=== PATIENT | female | born 1945 | race Caucasian/White ===

== ENCOUNTER → 2019-06-12 08:36 | Outpatient (REF) | payer MEDICARE, SELFPAY | LOC: ANHLAB 08:36 | PROVIDERS: PCP Internal Medicine; Visit Provider Nurse Practitioner Family | DX: D49.2 Neoplasm of unspecified behavior of bone, soft tissue, and skin (principal) | CPT/HCPCS: 88305 ==

== ENCOUNTER → 2019-07-02 09:53 | Outpatient (REF) | payer MEDICARE, SELFPAY | LOC: ANHLAB 09:53 | PROVIDERS: PCP Internal Medicine; Visit Provider Nurse Practitioner Family | DX: C44.321 Squamous cell carcinoma of skin of nose (principal) | CPT/HCPCS: 88305; 88331 ==

== ENCOUNTER 2020-06-30 11:46 | Outpatient (CLI) | payer MEDICARE, SELFPAY | END 2020-06-30 11:47 | disposition home or self-care (01) | LOC: ANHCOVIDVC 11:46 | PROVIDERS: PCP Internal Medicine | DX: Z23 Encounter for immunization (principal) | CPT/HCPCS: 0001A; 91300 ==

== ENCOUNTER 2020-07-21 11:45 | Outpatient (CLI) | payer MEDICARE, SELFPAY | END 2020-07-21 11:46 | disposition home or self-care (01) | LOC: ANHCOVIDVC 11:45 | PROVIDERS: PCP Internal Medicine | DX: Z23 Encounter for immunization (principal) | CPT/HCPCS: 0002A; 91300 ==

== ENCOUNTER 2023-09-05 04:22 | Observation (INO) | payer MEDICARE, SELFPAY ==
[2023-09-05] VITALS (24 sets, daily range): BP systolic 147–169; BP diastolic 60–89; PULSE 68–166; RESP 16–24; TEMP 36.5–36.8; O2SAT 93–100; BMI 25.3
--- NOTE | 2023-09-05 | ECHO_ITS ---
Patient Info Name: Miriam Lima Age: 78 years : 1945 Gender: Female Ht: 61 in Wt: 134 lbs BSA: 1.63 m2 HR: 85 bpm BP: 155 / 68 mmHg Heart Rhythm: Sinus Rhythm Technical Quality: Fair Exam Date: 09/05/2023 4:06 PM Exam Location: Echo Lab Patient Status: Outpatient Admit Date: 09/05/2023 Staff Ordering Physician: Jose Rafael Long MD Chemist Enzymes: Lawrence James RDCS Attending Provider: Donnell Lewis MD Referring Physician: Ethan DEL REAL; Exam Type: CA echo doppler w bubble study Study Info Indications - CVA Complete two-dimensional, color flow and Doppler transthoracic echocardiogram is performed with agitated saline. Contrast/Agitated Saline Contrast/Ag. Saline: Agitated Saline Amount: 14.00 ml IV Access Condition: patent with no signs of infiltration Summary 1. Left ventricular chamber dimension is normal. 2. Left ventricular systolic function is normal, estimated at 60-65%. 3. The left ventricular diastolic function is grade I diastolic dysfunction. 4. Right ventricular systolic function is normal. 5. Intact interatrial septum visualized by color flow and agitated saline imaging. Negative bubble study. 6. No significant valvular disease. Left Ventricle Left ventricular chamber dimension is normal. Left ventricular systolic function is normal, estimated at 60-65%. There is no increased left ventricular wall thickness. The left ventricular diastolic function is grade I diastolic dysfunction. Right Ventricle Right ventricular chamber dimension is normal. Right ventricular systolic function is normal. Left Atria Left atrial chamber dimension is normal. Right Atria Right atrial chamber dimension is normal. Atrial Septum Intact interatrial septum visualized by color flow and agitated saline imaging. Negative bubble study. Aortic Valve The aortic valve is trileaflet. There is mild aortic valve sclerosis. There is no aortic valve stenosis. There is trace aortic valve regurgitation. Pulmonic Valve The pulmonic valve is not well visualized. There is trace pulmonic regurgitation. Mitral Valve There is trace mitral valve regurgitation. Tricuspid Valve There is trace tricuspid valve regurgitation. Pericardium/Pleural The pericardium appears epicardial fat pad. There is no pericardial effusion. Inferior Vena Cava Normal inferior vena cava with >50% collapse upon inspiration consistent with normal right atrial pressure, 3 mmHg. Aorta The aortic root size at the sinus of Valsalva is normal. Left Ventricular Outflow Tract Name Value Normal LVOT 2D LVOT Diameter 2.0 cm LVOT Doppler LVOT Peak Gradient 4 mmHg LVOT Mean Gradient 2 mmHg LVOT VTI 19 cm LVOT VTI/AV VTI Ratio 0.9 LVOT Stroke Volume 56 ml LVOT CO 4.0 l/min LVOT CI 2.4 l/min/m2 Pulmonic Valve Name Value Normal
--- NOTE | ~2023-09-05 | CT_ITS ---
CT ANGIOGRAM NECK AND HEAD History: Left-sided numbness. Technique: Axial noncontrast imaging of the brain was performed. Serial spiral axial images through t he head and neck were then obtained during arterial phase IV injection of 100 cc of Omnipaque 350. 3- D postprocessing and MIP images were then reconstructed on the remote workstation. Dose reduction leydi hnique was used on this scan by utilizing automated exposure control and iterative reconstruction leydi hnique. The dose-length product (DLP) was 1503.40 mGy-cm. CTA neck findings: Bilateral vertebral arteries are patent. Bilateral common carotid, internal carot id, and external carotid arteries are patent. No large vessel occlusion or stenosis. No aneurysm. The proximal right internal carotid artery demonstrates 0% stenosis relative to the normal distal artery lumen diameter. The proximal left internal carotid artery demonstrates 0% stenosis relative to the n ormal distal artery lumen diameter. CTA head findings: Distal vertebral arteries, basilar artery, and posterior cerebral arteries are pat ent. Distal internal carotid arteries, middle cerebral arteries, and anterior cerebral arteries are p atent. No large vessel occlusion or stenosis. No aneurysm evident. Axial noncontrast imaging of the brain is unremarkable. No acute infarct, internal hemorrhage or mass lesion seen. No mass effect or midline shift. Dykes-white differentiation preserved. Ventricles and s ubarachnoid spaces are unremarkable. There are retention cysts or polyps in the maxillary sinuses. Re maining paranasal sinuses and mastoid air cells are essentially clear. Impression: No significant abnormality seen. Reviewed, dictated and finalized at location . Impression: No significant abnormality seen.
--- NOTE | ~2023-09-05 | MR_ITS ---
EXAMINATION: MR brain/brain stem wo/w con DATE: 09/05/2023 12:31 INDICATION: Left hemiparesis. TECHNIQUE: Magnetic resonance imaging (MRI) of the brain and brainstem was performed without and with 12 mL MultiHance intravenous contrast. COMPARISON: CT head 09/05/2023 FINDINGS: There are scattered areas of nonspecific increased T2-weighted signal intensity in the cere bral white matter, which is within normal limits for the patient's age. There is no intracranial hemo rrhage, acute infarction, or abnormal intracranial mass lesion. The ventricles are normal in size. Th e orbits are normal. There is mucosal thickening in the paranasal sinuses. The mastoid air cells are normal. IMPRESSION: 1. Normal aging brain. Reviewed, dictated and finalized at location A. IMPRESSION: 1. Normal aging brain.
--- NOTE | ~2023-09-05 | XR_ITS ---
Portable chest x-ray Comparison: None Clinical History: Left-sided numbness Findings: Small calcified granulomas are present. No acute pulmonary abnormality seen. Cardiomedias tinal silhouette is unremarkable. Bones and soft tissues are unremarkable. Impression: No acute abnormalities. Reviewed, dictated and finalized at [facility]. Impression: No acute abnormalities.
--- NOTE | 2023-09-05 05:14 | ECG_ITS ---
SEE SCANNED COPY FOR CONFIRMED REPORT MTDD
--- NOTE | 2023-09-05 05:36 | ED.GENADULT ---
HPI - General Adult General Chief complaint: Neuro Symptoms/Deficit <Zelalem Diaz MD - Last Filed: 09/05/23 07:20> Stated complaint: left arm and left leg numbness <Zelalem Diaz MD - Last Filed: 09/05/23 07:20> Time Seen by Provider: 09/05/23 04:50 <Zelalem Diaz MD - Last Filed: 09/05/23 07:20> History of Present Illness HPI narrative: This is a 78-year-old female presenting with left-sided numbness. last known normal was early Sunday morning 2 days ago. Patient has been experiencing numbness and tingling on the left side of her body. It has affected the left side of face, left upper extremity and left lower extremity. No other neurologic deficits or weakness. <Zelalem Diaz MD - Last Filed: 09/05/23 07:20> Related Data Home medications: Home Medications Medication Instructions Recorded Confirmed aspirin 81 mg tablet,delayed 81 mg PO QHS 05/13/19 09/05/23 release fexofenadine 180 mg tablet 180 mg PO DAILY 05/14/19 09/05/23 (Margie Allergy) latanoprostene bunod 0.024 % eye 1 drp EACH EYE DAILY 03/07/22 09/05/23 drops (Vyzulta) <Zelalem Diaz MD - Last Filed: 09/05/23 07:20> Allergies/adverse reactions: Allergies Allergy/AdvReac Type Severity Reaction Status Date / Time naproxen Allergy Severe passing out Verified 07/12/23 08:03 codeine AdvReac Mild nausea Verified 09/05/23 07:46 <Zelalem Diaz MD - Last Filed: 09/05/23 07:20> [facility] Past Medical History Medical History: Medical History Allergic rhinitis Glaucoma Irritable bowel syndrome with diarrhea Osteoarthritis Pure hypercholesterolemia Skin neoplasm <Zelalem Diaz MD - Last Filed: 09/05/23 07:20> Surgical History Surgical History: Surgical History History of breast surgery <Zelalem Diaz MD - Last Filed: 09/05/23 07:20> Family History Family History: Family History Sibling Family history of malignant neoplasm of breast in first degree relative, Onset Age: 62 Patient's sister is Cerebrovascular accident Mother Patient's mother is Father Patient's father is <Zelalem Diaz MD - Last Filed: 09/05/23 07:20> Social History Social History: Social History Smoking status: Never smoker Second hand tobacco smoke exposure: No Alcohol intake: never Substance use: never Do You Feel Safe in your Home?: Yes Lack of Transportation: No Lack of Food: Never True Current Housing: I Have Housing Concerned About Future Housing: No Difficulty Paying Gas/Electric Bills: No Difficulty Paying for Meds: No Currently Unemployed: No Education: High School Diploma/GED Difficulty w/ Childcare or Family Care: No Spiritual care concerns: No <Zelalem Diaz MD - Last Filed: 09/05/23 07:20> Exam Narrative: APPEARANCE: No apparent distress. Head: atraumatic. EYES: EOMI, NOSE: Atraumatic NECK: Trachea midline RESPIRATORY: No increased rate of breathing CTAB CARDIOVASCULAR: RRR, ABDOMINAL: Non-distended MUSCULOSKELETAl: No obvious deformities NEURO: Alert. Cranial nerves 2-12 grossly intact. motor function, cerebellar function intact for 4 extremities. sensation to light touch reduced on the left side of the body, Gait exam was normal. SKIN:: Warm, dry. Normal color PSYCHIATRIC: Normal affect NIH Stroke Scale/Score (NIHSS) from [email or web address] on 09/05/2023 All calculations should be rechecked by clinician prior to use RESULT SUMMARY: 1 points NIH Stroke Scale INPUTS: 1A: Level of consciousness ?> 0 = Alert; keenly responsive 1B: Ask month and age ?> 0 = Both questions right 1C: 'Blink eyes' & 'squeeze hands' ?> 0 = Performs both tasks 2: Horizontal extr
[2023-09-05 06:19] LABS: Basophils Absolute Auto 0.1 K/mm3 (0.0-0.1); Basophils Percent Auto 0.9 % (0.2-1.2); Eosinophils Absolute Auto 0.2 K/mm3 (0-0.3); Hematocrit 40.7 % (37.0-47.0); Hemoglobin 12.8 g/dL (12.0-15.0); Immature Granulocyte Absolute 0.01 K/mm3 (0.00-0.031); Immature Granulocyte Percent A 0.2 % (0-0.5); Lymphocytes Absolute Auto 2.58 K/mm3 (0.9-3.2); Lymphocytes Percent Auto 45.8 % (18.3-44.2); Mean Corpuscular HGB Conc 31.4 g/dl (32-36); Mean Corpuscular Hemoglobin 28.6 pg (26-34); Mean Corpuscular Volume 90.8 fl (80-100); Mean Platelet Volume 9.6 fl (7.4-10.4); Monocytes Absolute Auto 0.5 K/mm3 (0.1-0.6); Monocytes Percent Auto 8.5 % (2.6-8.5); Neutrophils Absolute Auto 2.3 K/mm3 (1.3-6.7); Neutrophils Percent Auto 41.6 % (45.5-73.1); Platelet Count Result 276 k/mm3 (150-375); Red Blood Count 4.48 M/mm3 (4.2-5.4); Red Cell Distribution Width 13.4 % (11.5-14.5); White Blood Count 5.6 K/mm3 (4.5-10.0)
[2023-09-05 06:29] LABS: Alanine Aminotransferase 20 U/L (6-35); Albumin Level 4.3 g/dL (3.5-5.1); Alkaline Phosphatase 71 U/L (38-126); Anion Gap 6 mmol/L (4-12); Aspartate Amino Transferase 22 U/L (14-36); Bilirubin,Total 0.4 mg/dL (0.2-1.3); Blood Urea Nitrogen 20 mg/dL (7-17); Calcium 9.3 mg/dL (8.4-10.2); Carbon Dioxide 26 mmol/L (22-30); Chloride 109 mmol/L (98-107); Estimated CRCL calculation 37 ml/min; Estimated Glomerular Filt Rate > 60; Glucose 95 mg/dL (65-110); Potassium 3.7 mmol/L (3.4-5.0); Sodium 141 mmol/L (137-145)
[2023-09-05 06:30] LABS: Partial Thromboplastin Time 25.5 Seconds (22.3-36.8)
[2023-09-05 06:41] LABS: Troponin I < 0.012 ng/mL (0.000-0.034)
[2023-09-05] MEDS: ASPIRIN 81 MG CHEWABLE TABLET 324 MG PO (07:58)
--- NOTE | 2023-09-05 11:11 | ADMGEN ---
This patient, Miriam Lima, was admitted to Medical Room 255-. Patient/family oriented to hospital policies and general routines including ID bracelet, bed and alarms, visiting hours, pain management, procedures, bathroom and other care routines, personal items, smoking policy, room service/diet, and visiting hours. Information on how to activate the Rapid Response Team has been discussed. Patient/Family are encouraged to report perceived risks to care and to ask questions if they do not understand what they are told or what they should do.
--- NOTE | 2023-09-05 13:14 | PM.IMHP ---
H&P: HPI History of Present Illness Date/Time: 09/05/23 13:14 Chief Complaint: Left Sided Numbness Narrative: 78 y/o F presents here with left sided numbness with PMH of skin neoplasm (nose, s/p excision), asthma, IBS-D, and glaucoma. Patient presented here from home with complaints of left leg numbness and left arm tingling that started on 09/02. First noted around 830-9 am shortly after she got out of bed. LKN on 09/01 at 11 pm. Sensation changes noted by patient to the left leg, left arm, and left face. Initially more so in LUE, then noted it in her foot, and then it effected her LLE from the knee down. Facial numbness is primarily to her left cheek. Numbness has been intermittent. Extremity weakness, dysarthria, trouble swallowing, vision changes, difficulty with speech, headaches, gait changes, or difficulty with dexterity in her upper extremity. Currently lives at home alone, daughter will occasionally come to help but patient primarily lives independently. Reports increased stress for the last week, patient had to go to a friend's on Sunday. Does report numbness to the left cheek felt similar to her early presentation of shingles and her first shingles episode was also precipitated by a grief/ of a loved one, however there is no rash or erythema to area. Initial VS at presentation: 97.8? F, HR 90, RR 22, 150/89, and 100% on RA. ED workup showed: No leukocytosis, no anemia, no significant electrolyte derangements, creatinine 0.8 and GFR >60, initial troponin negative. CXR showed no acute abnormalities. Head and neck CTA showed no significant abnormalities. Review of Systems Review of Systems: All systems reviewed & are unremarkable except as noted in HPI and below PMFSH Past Medical History Medical History (Updated 09/05/23 @ 23:58 by Maria Del Carmen Nielson APRN) Allergic rhinitis Asthma Glaucoma Irritable bowel syndrome with diarrhea Osteoarthritis primarily effecting the cervical spine Skin neoplasm Surgical History Surgical History (Updated 09/05/23 @ 23:51 by Maria Del Carmen Nielson APRN) History of breast surgery cyst removal, 2003 Family History Family History Sibling Family history of malignant neoplasm of breast in first degree relative, Onset Age: 62 Patient's sister is Cerebrovascular accident Mother Patient's mother is Father Patient's father is Social History Social History Smoking status: Never smoker Second hand tobacco smoke exposure: No Alcohol intake: never Substance use: never Do You Feel Safe in your Home?: Yes Lack of Transportation: No Lack of Food: Never True Current Housing: I Have Housing Concerned About Future Housing: No Difficulty Paying Gas/Electric Bills: No Difficulty Paying for Meds: No Currently Unemployed: No Education: High School Diploma/GED Difficulty w/ Childcare or Family Care: No Spiritual care concerns: No Meds Home Medications and Allergies Home Medications Medication Instructions Recorded Confirmed Type aspirin 81 mg tablet,delayed 81 mg PO QHS 05/13/19 09/05/23 History release fexofenadine 180 mg tablet 180 mg PO DAILY 05/14/19 09/05/23 History (Margie Allergy) fluticasone propionate 50 2 spray intranasal DAILY PRN nasal 03/07/22 09/05/23 Rx mcg/actuation nasal congestion #15.8 mL spray,suspension latanoprostene bunod 0.024 % eye 1 drp EACH EYE DAILY 03/07/22 09/05/23 History drops (Vyzulta) albuterol sulfate 90 mcg/actuation 2 puff inhalation .4-6 HOURS PRN 08/11/22 09/05/23 Rx aerosol inhaler (ProAir HFA) shortness of breath or wheezing #18 grams montelukast 10 mg tablet 10 mg PO DAILY #90 tabs 03/19/23 09/05/23 Rx loratadine-pseudoephedrine ER 10 1 tablet PO DAILY PRN nasal 05/08/23 09/05/23 Rx mg-240 mg tablet,extended congest
[2023-09-05] MEDS: LATANOPROST 0.005% OP SOLN 2.5 ML BTL 1 DROP EACH EYE (20:15)
[2023-09-05] MEDS: ASPIRIN 81 MG CHEWABLE TABLET PO (20:15)
[2023-09-05] MEDS: MONTELUKAST SODIUM 10 MG TABLET PO (20:20)
[2023-09-05] MEDS: FLUTICASONE PROP 44 MCG (*SP) 10.6 GM 2 PUFF INHALATION (20:31)
[2023-09-06] VITALS (8 sets, daily range): BP systolic 136–143; BP diastolic 59–70; PULSE 60–93; RESP 16–18; TEMP 35.8–36.4; O2SAT 96–97
[2023-09-06] MEDS: MELATONIN 3 MG TABLET PO (00:31)
[2023-09-06 05:32] LABS: Basophils Absolute Auto 0.1 K/mm3 (0.0-0.1); Basophils Percent Auto 0.9 % (0.2-1.2); Eosinophils Absolute Auto 0.1 K/mm3 (0-0.3); Eosinophils Percent Auto 2.3 % (0-4.4); Hematocrit 40.7 % (37.0-47.0); Hemoglobin 12.6 g/dL (12.0-15.0); Immature Granulocyte Absolute 0.01 K/mm3 (0.00-0.031); Immature Granulocyte Percent A 0.2 % (0-0.5); Lymphocytes Absolute Auto 2.06 K/mm3 (0.9-3.2); Lymphocytes Percent Auto 36.9 % (18.3-44.2); Mean Corpuscular Hemoglobin 28.2 pg (26-34); Mean Corpuscular Volume 91.1 fl (80-100); Mean Platelet Volume 9.1 fl (7.4-10.4); Monocytes Absolute Auto 0.5 K/mm3 (0.1-0.6); Monocytes Percent Auto 9.5 % (2.6-8.5); Neutrophils Absolute Auto 2.8 K/mm3 (1.3-6.7); Neutrophils Percent Auto 50.2 % (45.5-73.1); Platelet Count Result 270 k/mm3 (150-375); Red Blood Count 4.47 M/mm3 (4.2-5.4); Red Cell Distribution Width 13.2 % (11.5-14.5); White Blood Count 5.6 K/mm3 (4.5-10.0)
[2023-09-06 05:42] LABS: Alanine Aminotransferase 20 U/L (6-35); Albumin Level 4.2 g/dL (3.5-5.1); Alkaline Phosphatase 65 U/L (38-126); Anion Gap 5 mmol/L (4-12); Aspartate Amino Transferase 24 U/L (14-36); Bilirubin,Total 0.6 mg/dL (0.2-1.3); Blood Urea Nitrogen 15 mg/dL (7-17); Calcium 9.6 mg/dL (8.4-10.2); Carbon Dioxide 29 mmol/L (22-30); Chloride 108 mmol/L (98-107); Cholesterol 235 mg/dL (0-200); Estimated CRCL calculation 37 ml/min; Estimated Glomerular Filt Rate > 60; Glucose 94 mg/dL (65-110); HDL Direct 71 mg/dL; Potassium 4.2 mmol/L (3.4-5.0); Sodium 142 mmol/L (137-145); Triglycerides 88 mg/dL (<150)
[2023-09-06 05:53] LABS: LDL Cholesterol Direct 134 mg/dL
[2023-09-06 06:09] LABS: Hemoglobin A1C 5.2 % (<5.7)
[2023-09-06] MEDS: FLUTICASONE PROP 44 MCG (*SP) 10.6 GM 2 PUFF INHALATION (08:03)
--- NOTE | 2023-09-06 08:22 | PM.IMPN ---
Progress Note: A&P Assessment and Plan (1) Left sided numbness: Code(s): R20.0 - Anesthesia of skin Status: Acute Assessment and Plan: New deficits of left-sided numbness (leg, arm, face) starting on 09/02 and discovered around 830-9 am on . No stroke on CT or MRI. - admission for observation and telemetry - not candidate for thrombolytics due to timeframe - not candidate for thrombectomy due to occlusion time frame - CTA: No significant abnormality seen. - CXR: No acute abnormalities. - brain MRI w/wo: 1. Normal aging brain. - neurology consulted - Phuong LYONS- not seen yet - echo w/Bubble ordered - neuro checks Q4 - heart healthy diet - monitor daily labs, lipid panel, A1C - defer starting Atorvastatin 40 mg PO or Plavix 75 mg PO to neuro, no CVA seen on MRI - continue ASA 81 mg Plan Presented here with intermittent left sided numbness (leg, arm, face). No CVA on MRI or CTA. Echo ordered. Neuro consulted. Diet: heart healthy GI Prophylaxis: not currently indicated DVT Prophylaxis: SCDs Lines: peripheral Code Status: full code Time Spent With Patient Time with patient: 15 - 25 minutes Subjective Date/time seen: 09/06/23 08:22 Interval history: 78 y/o F presents here with left sided numbness with PMH of skin neoplasm (nose, s/p excision), asthma, IBS-D, and glaucoma. Patient presented here from home with complaints of left leg numbness and left arm tingling that started on 09/02. First noted around 830-9 am shortly after she got out of bed. LKN on 09/01 at 11 pm. Sensation changes noted by patient to the left leg, left arm, and left face. Initially more so in LUE, then noted it in her foot, and then it effected her LLE from the knee down. Facial numbness is primarily to her left cheek. Numbness has been intermittent. Extremity weakness, dysarthria, trouble swallowing, vision changes, difficulty with speech, headaches, gait changes, or difficulty with dexterity in her upper extremity.? Currently lives at home alone, daughter will occasionally come to help but patient primarily lives independently. Reports increased stress for the last week, patient had to go to a friend's on Sunday. Does report numbness to the left cheek felt similar to her early presentation of shingles and her first shingles episode was also precipitated by a grief/ of a loved one, however there is no rash or erythema to area. Initial VS at presentation:? 97.8? F, HR 90, RR 22, 150/89, and 100% on RA. ED workup showed:? No leukocytosis, no anemia, no significant electrolyte derangements, creatinine 0.8 and GFR >60, initial troponin negative.? CXR showed no acute abnormalities.? Head and neck CTA showed no significant abnormalities. Neuro was consulted , brain MRI- WNL echo 09/05- pt is seen and examined. She is somewhat anxious but pleasant and cooperative. no pain or discomfort Review of Systems Review of Systems: All systems reviewed & are unremarkable except as noted in HPI and below Exam Const: General: comfortable and no acute distress Other: , female, nontoxic appearance HENMT: Face/Nose/Sinus: Normal nares present Mouth: Yes moist mucous membranes Eyes: General: appearance normal, both eyes and all related structures Sclera: sclerae normal Pupils: Equal, round and reactive pupils present EOM: EOMs intact bilaterally Resp: Effort & Inspection: normal respiratory effort Auscultation: clear to auscultation bilaterally Cardio: Rate: regular rate Rhythm: regular rhythm Other: S1-S2 present without murmur, rub, ectopy GI: Other: Soft, nondistended, nontender Skin: General skin exam: normal color and no rashes or lesions noted Wounds: no wounds Neuro: Cranial nerves: Yes Equal, round and reactive pupils present Speech: normal speech Motor exam (neuro): 5/5 motor strength present throughout Sensory Exam: normal sensation Other: NIHSS 0. A/Ox4 Extrem: General: norm
[2023-09-06] MEDS: LORATADINE 10 MG TABLET PO (08:24)
--- NOTE | 2023-09-06 15:37 | WPDNEURCNPN ---
Assessment and Plan Assessment and plan (1) Cerebrovascular disease: Code(s): I67.9 - Cerebrovascular disease, unspecified Status: Acute Assessment and Plan: Since the patient has symptoms of numbness in the left face left upper and lower limb in her age and state of live cerebrovascular disease with rest he still appeared to be most likely explanation although MRI of the brain and CT angiogram did not show any significant abnormalities. A small please in the thalamus can easily be missed and has out suggest to treat with atorvastatin 40 mg a day and antiplatelets for now. If she has any further spells we can re-evaluate her again. She is under cardiac telemetry monitoring. This has not shown any abnormalities yet. Echocardiogram was performed which did not show any significant abnormalities. Plan As discussed above atorvastatin and aspirin are recommended. If the symptoms continue up worse have advised her to come back to emergency room. I can also see her in my office if she would like. At this time however she should follow with her family physician. Thank you very much for allowing me to participate in the care of this patient. Consult date: 09/06/23 HPI: Miriam Lima is a 78 year old female with history of onset of numbness in the left upper and lower limb as well as left face. The symptoms are more less resolved although she still continues to have some abnormal feeling on the left side of the face. A CT scan of the brain and CT angiogram of the head and neck were performed on admission which did not show any significant abnormality MRI of the brain was normal the LDL is 134. Patient lives by herself. Daughter lives nearby and is supportive. No history of previous stroke or any lapse in her awareness. No chest pain or palpitation or shortness of breath. She denies any loss of speech difficulty with thinking or memory. Symptoms started 2 days ago. No history of fall or injury or any illness. Review of Systems Constitutional: Constitutional: Denies chills, Denies fever(s) and Denies weight loss Eyes: Eyes: Denies diplopia and Denies loss of vision ENT: Denies dizziness, Denies hearing loss and Denies tinnitus Cardiovascular: Cardiovascular: Denies chest pain, Denies syncope and Denies dyspnea Respiratory: Respiratory: Denies cough, Denies dyspnea and Denies wheezing Gastrointestinal: Gastrointestinal: Denies abdominal pain, Denies change in bowel habits and Denies vomiting Genitourinary: Genitourinary: Denies urinary incontinence Musculoskeletal: Musculoskeletal: Denies arthralgias and Denies joint swelling Integumentary/Breasts: Skin/Breast: Denies new lesions and Denies rash Neurologic: Reports as per HPI, Denies dizziness, Denies syncope and Denies loss of vision Psychiatric: Psychiatric: Denies anxiety and Denies depression Endocrine: Endocrine: Denies cold intolerance and Denies heat intolerance Hematologic/Lymphatic: Hematologic/Lymphatic: Denies easy bleeding and Denies easy bruising Allergic/Immunologic: Allergic/Immunologic: Denies no additional allergic/immunologic complaints and Denies wheezing PMFSH Past Medical History Medical History (Updated 09/06/23 @ 15:39 by Travis Galeana MD) Allergic rhinitis Asthma Cerebrovascular disease Glaucoma Irritable bowel syndrome with diarrhea Osteoarthritis primarily effecting the cervical spine Skin neoplasm Surgical History Surgical History (Updated 09/05/23 @ 23:51 by Maria Del Carmen Nielson APRN) History of breast surgery cyst removal, 2003 Family History Family History Sibling Family history of malignant neoplasm of breast in first degree relative, Onset Age: 62 Patient's sister is Cerebrovascular accident Mother Patient's mother is Father Patient's father is Social History Social History (Reviewed
--- NOTE | 2023-09-06 16:24 | PM.DS ---
DS: Admitting Diagnosis Discharge Date 09/06/23 Admitting Diagnosis lt sided weakness DS: Discharge Diagnosis Discharge Diagnosis (1) Left sided numbness: Code(s): R20.0 - Anesthesia of skin Status: Acute Assessment and Plan: New deficits of left-sided numbness (leg, arm, face) starting on 09/02 and discovered around 830-9 am on . No stroke on CT or MRI. - admission for observation and telemetry - not candidate for thrombolytics due to timeframe - not candidate for thrombectomy due to occlusion time frame - CTA: No significant abnormality seen. - CXR: No acute abnormalities. - brain MRI w/wo: 1. Normal aging brain. - neurology consulted - Phuong LYONS- not seen yet - echo w/Bubble ordered - neuro checks Q4 - heart healthy diet - monitor daily labs, lipid panel, A1C - defer starting Atorvastatin 40 mg PO or Plavix 75 mg PO to neuro, no CVA seen on MRI - continue ASA 81 mg Plan Presented here with intermittent left sided numbness (leg, arm, face). No CVA on MRI or CTA. Echo ordered. Neuro consulted. Diet: heart healthy GI Prophylaxis: not currently indicated DVT Prophylaxis: SCDs Lines: peripheral Code Status: full code DS: Summary Hospital Course Hospital Course: ok to discharge per neurology. start asa, statin, f/u with neurology Time spent discussing smoking cessation with patient: 3 to 10 minutes Status at Discharge Functional status at discharge: independent ambulation Overall status at discharge: patient is back to baseline Time Spent with Patient Time attestation: Total time spent providing and/or coordinating discharge services: Time spent: Less than 30 minutes Exam Const: General: comfortable and no acute distress Other: , female, nontoxic appearance HENMT: Face/Nose/Sinus: Normal nares present Mouth: Yes moist mucous membranes Eyes: General: appearance normal, both eyes and all related structures Sclera: sclerae normal Pupils: Equal, round and reactive pupils present EOM: EOMs intact bilaterally Resp: Effort & Inspection: normal respiratory effort Auscultation: clear to auscultation bilaterally Cardio: Rate: regular rate Rhythm: regular rhythm Other: S1-S2 present without murmur, rub, ectopy GI: Other: Soft, nondistended, nontender Skin: General skin exam: normal color and no rashes or lesions noted Wounds: no wounds Neuro: Cranial nerves: Yes Equal, round and reactive pupils present Speech: normal speech Motor exam (neuro): 5/5 motor strength present throughout Sensory Exam: normal sensation Other: NIHSS 0. A/Ox4 Extrem: General: normal to inspection Psych: Mental Status: mental status grossly normal Affect: normal affect Other: Good insight judgment, very pleasant DS: Data Data Completed and Pending Completed studies during hospitalization: brain mri, cta Pending studies at discharge: none Labs on day of discharge: Labs from last 24 hours 09/06/23 04:58 WBC 5.6 RBC 4.47 Hgb 12.6 Hct 40.7 MCV 91.1 MCH 28.2 MCHC 31.0 L RDW 13.2 Plt Count 270 MPV 9.1 Immature Gran % (Auto) 0.2 Neut % (Auto) 50.2 Lymph % (Auto) 36.9 [place] % (Auto) 9.5 H Eos % (Auto) 2.3 Baso % (Auto) 0.9 Lymph # (Auto) 2.06 [place] # (Auto) 0.5 Eos # (Auto) 0.1 Baso # (Auto) 0.1 Abs Immat Gran (auto) 0.01 Absolute Neuts (auto) 2.8 Absolute Nucleated RBC 0.000 Nucleated RBC % 0.0 Sodium 142 Potassium 4.2 Chloride 108 H Carbon Dioxide 29 Anion Gap 5 BUN 15 D Creatinine 0.80 Estim Creat Clear Calc 37 Estimated GFR > 60 Glucose 94 Hemoglobin A1c 5.2 Calcium 9.6 Total Bilirubin 0.6 AST 24 ALT 20 Alkaline Phosphatase 65 Total Protein 7.0 Albumin 4.2 Triglycerides 88 Cholesterol 235 H LDL Cholesterol Direct 134 HDL Direct 71 Discharge Plan Discharge Consulting providers: Peter Baca Discharging Clinician: Cyndee Acuna Patient Disposition: Home, Self-Car
== END 2023-09-06 17:40 | disposition home or self-care (01) ==
LOC: ANHED 07:20 → ANH3MEDSUR 08:51 → ANH2MED 10:21
PROVIDERS: Student in an Organized Health Care Education/Training Program; Admitting Provider Internal Medicine; Emergency Provider Emergency Medicine; PCP Internal Medicine; Visit Provider Internal Medicine
DX: I67.9 Cerebrovascular disease, unspecified (principal); R20.0 Anesthesia of skin; H40.9 Unspecified glaucoma; E78.00 Pure hypercholesterolemia, unspecified; J45.909 Unspecified asthma, uncomplicated; K58.0 Irritable bowel syndrome with diarrhea; Z79.51 Long term (current) use of inhaled steroids; Z79.82 Long term (current) use of aspirin; Z79.899 Other long term (current) drug therapy
CPT/HCPCS: 36415; 70496; 70498; 70553; 71045; 80053; 80061; 83036; 84484; 85025; 85610; 85730; 93005; 93306; 94640; 96375; 99285; A9270; A9577; G0378; Q9967